=== PATIENT | male | born 1970 | race Caucasian/White ===

== ENCOUNTER 2023-12-01 14:58 | Emergency (ER) | payer BC, SELFPAY ==
[2023-12-01 15:06] VITALS: BP 149/99
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
[2023-12-01] MEDS: TYLENOL 650 MG PO (18:03)
[2023-12-01] MEDS: MOTRIN 600 MG PO (18:03)
[2023-12-01] MEDS: VALIUM 5 MG PO (18:03)
== END 2023-12-01 18:38 | disposition home or self-care (01) ==
LOC: EMR 14:58
PROVIDERS: EMERGENCY PHYSICIAN Emergency Medicine; FAMILY PHYSICIAN Family Medicine
DX: S63.601A Unspecified sprain of right thumb, initial encounter (principal); V89.2XXA Person injured in unspecified motor-vehicle accident, traffic, initial encounter; Y92.410 Unspecified street and highway as the place of occurrence of the external cause; Z86.711 Personal history of pulmonary embolism
CPT/HCPCS: 99283; 73130

== ENCOUNTER 2025-06-16 21:19 | Emergency (ER) | payer BC, SELFPAY ==
[2025-06-16 21:25] VITALS: BP 167/102
[2025-06-16] MEDS: ADACEL 0.5 ML IM (22:27)
--- NOTE | 2025-06-16 23:44 | ED.SKININJ ---
HPI-Injury
General
Chief Complaint: Skin Surface Trauma
Source: patient
Exam Limitations: none
Time Seen by Provider: 06/16/25 22:14
Nursing documentation reviewed up to this point in time: agreed with
History of Present Illness-Injury
Initial Injury comments:
Note:
CHIEF COMPLAINT(S)
Injury to the foot.
HISTORY OF PRESENT ILLNESS
The patient is a 54-year-old male who presented after dropping a large sharp object on his foot while opening a box. The patient described the object as having a handle approximately the size of his hand, with a sufficiently substantial blade to
cause significant damage, potentially strong enough to break stone. He expressed concern over the possibility of a chipped bone and mentioned pain at the site of contact. The injury occurred while he was preparing to leave for work.
PHYSICAL EXAM
General: Alert, no acute distress.
Skin: Warm, dry.
Head: Normocephalic, atraumatic.
Neck: Supple, trachea midline.
Eye Ears, nose, mouth and throat: Oral mucosa moist.
Cardiovascular: Normal peripheral perfusion, No edema.
Respiratory: Respirations are non-labored.
Gastrointestinal : Abdomen nondistended
Back: Normal range of motion, Normal alignment.
Musculoskeletal: Normal range of motion, normal strength.
Neurological: Alert and oriented to person, place, time, and situation, No focal neurological deficit observed.
Psychiatric: Cooperative, appropriate mood & affect.
PLAN
1. Imaging: Order an X-ray of the foot to assess for any potential fractures or chipped bones resulting from the injury.
2. Tetanus Vaccination: Administer a tetanus booster since the patient cannot recall the last time he received one.
3. Wound Care: Prepare to clean and possibly suture the wound following assessment.
DIFFERENTIAL DIAGNOSIS
The differential diagnosis includes, in no particular order and is not limited to:
1. Fracture of foot bones
2. Contusion
3. Soft tissue injury
4. Laceration
5. Puncture wound
6. Foreign body retention
7. Hematoma
8. Infection risk due to open wound
9. Crush injury
10. Tendon injury
Disposition:
SUMMARY OF ENCOUNTER
The patient, a 54-year-old male, presented with a 3 cm laceration on the medial side of the right great toe. The injury was sustained from dropping a pocket knife on his foot. The central portion of the laceration required sutures, while the ends
were superficial.
EMERGENCY TREATMENTS ADMINISTERED
A tetanus booster was administered. The laceration was treated with four simple interrupted sutures using 5-0 nylon, followed by the application of Steri-Strips.
PLAN
Arrange for sutures to be removed in 5 to 7 days.
PROCEDURES
Four simple interrupted sutures were applied using 5-0 nylon. Steri-Strips were applied post-suturing.
PATIENT EDUCATION AND COUNSELING
The patient was advised on the importance of keeping the wound clean and dry. Instructions were given for recognizing signs of infection and to return to the emergency department if any of these symptoms occur.
DIAGNOSIS
Laceration of toe (S91.211A)
Past History
Past History
ED Past Medical History: Other (Pulmonary embolism)
ED Past Surgical History: Urological
Social History
Tobacco: Non-smoker
Phy Exam
Physical Exam
Physical Exam:
.
Course
Orders/Labs/Results
Orders:
Orders
06/16/25 22:18
Tetanus/Diphth/Acelpertussis [Adacel] 0.5 ml IM .ONCE ONE
Foot, Right 3 View [CR Foot - Right Min 3 Views] Urgent
Comment:
Reason For Exam: trauma
Vital Signs
Initial and Last Documented VS:
Initial Vital Signs
Temp Pulse Resp BP Pulse Ox
97.8 F 81 20 167/102 98
06/16/25 21:25 06/16/25 21:25 06/16/25 21:25 06/16/25 21:25 06/16/25 21:25
Last Documented Vital Signs
Temp Pulse Resp BP Pulse Ox
97.8 F 63 18 142/95 97
06/16/25 21:25 06/16/25 23:49 06/16/25 23:49 06/16/25 23:49 06/16/25 23:49
Procedures
Laceration Closure
Right Medial First Toe:
Status of Wound: clean
Size of Wound in cm: 3 (Only about 1-1/2 to 2 cm of suturable laceration. The ends are very superficial)
Description of Wound Edges: sharp
Preparation: cleaned with soap & water
Anesthesia: 1% Lidocaine
Revision/Debridement: routine- no revision
Wound exploration: explored to base- no FB
Type of Closure: single layer closure
Skin Closure Material: 5-0 nylon
Number of sutures: 4 (Steri-Strips applied as well)
*Pulse Oximetry
SaO2: 98
Oxygen Mode of Delivery: Room air
Patient hypoxic: no
*Critical Care Note
Total Time (30-74mins, 75-104mins- exclusive of procedures): Not Applicable
ED Attending Note
-
Portions of this chart may have been created with voice recognition software.� Occasional wrong word or��sound alike� substitutions may have occurred due to the inherent limitations of voice recognition software.
Discharge Plan
Departure
Patient Disposition: Home (Routine Discharge)
Date of Disposition: 06/16/25
Time of Disposition: 23:46
Patient with high blood pressure during this ER visit?: Yes
Discharge Problem:
Laceration of toe
Instructions: Wound Care (DC), Laceration Repair With Stitches (DC), BLOOD PRESSURE
Prescriptions:
No Action
cyclobenzaprine 10 mg tablet
10 mg PO BID PRN (Reason: muscle spasm) Qty: 7 0RF
Referrals:
Maryanne Terry MD [Family Provider, Family Practice]
Activity Restrictions/Additional Instructions:
Sutures can be removed in 5 to 7 days.
Thank You for choosing [facility].
It was a pleasure meeting you and taking part in your care. We hope for your continued healing and wellness.
Please read discharge instructions in their entirety. However, they are for general education and may not describe your exact diagnosis at discharge. Information on your ER visit and medical conditions were discussed with you along with appropriate
follow up information...
If indicated, please take your medications as instructed and indicated on discharge paperwork.
Please schedule a follow up appointment as directed. Call to schedule an appointment
Please return to the emergency department with ANY change in, persisting, or worsening of symptoms. If any of your symptoms do not improve, or persist, or become more severe within 6-12 hours, please return to the emergency department for further
care.
Please return to the emergency department if you develop a headache, neck pain/stiffness, fever greater than 100.4F, chest pain, shortness of breath, persistent nausea, vomiting, slurred speech, difficulty walking, numbness/tingling, weakness, signs
of infection or any other symptoms that are worrisome to you.
If you have any questions or concerns please do not hesitate to call the Hospital at .
Interventions
Interventions:
*General Assessment Last Done: 06/16/25 21:25
*Neglect/Abuse Screening Last Done: 06/16/25 21:41
*ED COVID-19 Vaccine History Last Done: 06/16/25 21:41
*ED Influenza Vaccine History Last Done: 06/16/25 21:41
[facility] Risk Assessment Tool Last Done: 06/16/25 21:41
*Risk Screen - Suicide (C-SSRS) Last Done: 06/16/25 21:41
*Nursing Disposition Last Done: 06/16/25 23:59
ED-Skin Assessment Last Done: 06/16/25 21:41
Discharge Date and Time
Discharge Date/Time: 06/16/25 23:59
Print Language: FRENCH
[2025-06-16 23:49] VITALS: BP 142/95
== END 2025-06-16 23:59 | disposition home or self-care (01) ==
LOC: EMR 21:19
PROVIDERS: EMERGENCY PHYSICIAN Student in an Organized Health Care Education/Training Program; FAMILY PHYSICIAN Family Medicine
DX: S91.111A Laceration without foreign body of right great toe without damage to nail, initial encounter (principal); W26.0XXA Contact with knife, initial encounter; W20.8XXA Other cause of strike by thrown, projected or falling object, initial encounter; Y99.0 Civilian activity done for income or pay; Z23 Encounter for immunization; Z86.711 Personal history of pulmonary embolism
CPT/HCPCS: 99283; 12002; 90471; 73630; 90715